=== PATIENT | female | born 1940 | race Caucasian/White ===

== ENCOUNTER 2020-11-27 19:39 | Inpatient (IN) | payer OTHER ==
[~2020-11-27] VITALS: Ht 165.1 cm; Wt 80.0 kg
[2020-11-27] MEDS ORDERED: temazepam 15mg capsule PO PRN (21:00)
[2020-11-27 21:48] LABS: BASOPHILS % (AUTO) 0.2 % (0-1); EOSINOPHILS % (AUTO) 0 % (0-6); HEMOGLOBIN 13.6 g/dl (12.0-16.0); LYMPHOCYTES % (AUTO) 45.3 % (21-51); MEAN CORPUSCULAR HEMOGLOBIN 30.8 PG (27.0-31.0); MEAN CORPUSCULAR HGB CONC 34.8 g/dL (33.0-36.5); MEAN CORPUSCULAR VOLUME 88.5 FL (78-98); MEAN PLATELET VOLUME 6.7 FL (7.4-10.4); MONOCYTES # (AUTO) 0.3 X10'3 (0-0.9); MONOCYTES % (AUTO) 14.3 % (2-12); NEUTROPHILS # (AUTO) 0.9 X10'3 (1.8-7.7); NEUTROPHILS % (AUTO) 40.2 % (42-75); PLATELET COUNT 134 X10'3 (140-440); RED BLOOD COUNT 4.41 X10'6 (4.20-5.60); RED CELL DISTRIBUTION WIDTH 14.3 % (11.5-14.5); WHITE BLOOD COUNT 2.2 X10'3 (4.5-11.0)
[2020-11-27 22:04] LABS: ALANINE AMINOTRANSFERASE 116 U/L (12-78); ALBUMIN 3.1 G/DL (3.4-5.0); ALBUMIN/GLOBULIN RATIO 0.8 (1.1-1.5); ALKALINE PHOSPHATASE 86 IU/L (46-116); ANION GAP 10 (8-16); ASPARTATE AMINO TRANSFERASE 184 U/L (10-37); BILIRUBIN,TOTAL 0.9 MG/DL (0.1-1.0); BLOOD UREA NITROGEN 19 MG/DL (7-18); BUN/CREATININE RATIO 23.5 (6.6-38.0); CALCIUM 8.5 MG/DL (8.5-10.1); CHLORIDE 92 MMOL/L (99-107); CREATININE 0.81 MG/DL (0.40-0.90); GLUCOSE 108 MG/DL (70-104); POTASSIUM 4.1 MMOL/L (3.5-5.1); SODIUM 130 MMOL/L (135-145); TOTAL CARBON DIOXIDE 27.9 MMOL/L (24-32); TOTAL PROTEIN 7.1 G/DL (6.4-8.2); eGFR 68 ML/MIN
[2020-11-27 22:07] LABS: TROPONIN I < 0.04 NG/ML (0.0-0.05)
[2020-11-27] MEDS ORDERED: iohexol 350MG/ML 100ml bottle IV ONE (22:09)
[2020-11-27] MEDS ORDERED: HYDROcodone/acetaminophen 5mg/325mg tablet PO PRN (22:35)
[2020-11-27] MEDS ORDERED: ondansetron/PF 4mg/2ml inj IV PRN (22:35)
[2020-11-27] MEDS ORDERED: ipratropium/albuterol 3ml nebule NEB PRN (22:35)
[2020-11-27] MEDS ORDERED: diphenhydrAMINE 25mg capsule PO PRN (22:35)
[2020-11-27] MEDS ORDERED: acetaminophen 650mg rectal suppository RC PRN (22:35)
[2020-11-27] MEDS ORDERED: acetaminophen 325mg tablet PO PRN ×2 (22:35)
[2020-11-27] MEDS ORDERED: mag hydrox/Alum hydrox/simeth 30ml oral suspension PO PRN (22:35)
[2020-11-27] MEDS: normal saline 1000ml 1,000 ML IV SCH (22:35)
[2020-11-27] MEDS ORDERED: magnesium hydroxide 30ml (MOM) UD suspension PO PRN (22:35)
[2020-11-27] MEDS ORDERED: diphenhydrAMINE 50 mg/ml inj IV PRN (22:35)
[2020-11-27] MEDS ORDERED: morphine 2 MG/ML inj. syringe IV PRN ×2 (22:35)
[2020-11-27] MEDS: docusate sod 100mg capsule PO SCH (22:43)
[2020-11-27] MEDS ORDERED: CASIRIVIMAB (REGN10933) 1332MG 600 MG, IMDEVIMAB (REGN10987) 1332mg 600 MG in normal sa... IV ONE (22:45)
[2020-11-27] MEDS ORDERED: dextrose 50%-water 50ml dispensing syringe IV PRN ×2 (22:45)
[2020-11-27] MEDS ORDERED: dextrose ORAL solution 15 GM/59 ML bottle PO PRN ×2 (22:45)
[2020-11-27] MEDS ORDERED: glucagon, human recombinant 1mg kit SUBCUT PRN (22:45)
[2020-11-27] MEDS ORDERED: MESSAGE TO PHARMACY PO ONE (22:45)
[2020-11-27] MEDS ORDERED: insulin Lispro (HumaLOG) vial - multi-dose SQ SCH (22:45)
[2020-11-27 23:15] LABS: PARTIAL THROMBOPLASTIN TIME 33 SECONDS (22-32)
[2020-11-27 23:17] LABS: HEMOGLOBIN A1C 6.8 % (4.5-6.2)
[2020-11-27 23:19] LABS: C-REACTIVE PROTEIN 1.12 MG/DL (0.0-0.5); CREATINE KINASE 109 U/L (26-192); LIPASE 84 U/L (73-393); MAGNESIUM 2.1 MG/DL (1.5-2.4); PHOSPHORUS 3.1 MG/DL (2.3-4.5)
[2020-11-27 23:33] LABS: TOTAL CELLS COUNTED 100
[2020-11-27 23:34] LABS: ACANTHOCYTES FEW; PLATELET ESTIMATE DECREASED; SMUDGE CELLS FEW
--- NOTE | 2020-11-27 23:37 | NUR ---
dr. winn at bedside. discussed regeneron. dr. bhandari contacting ID to get regeneron approved.
[2020-11-28] MEDS ORDERED: ALBUTEROL INHALER 1 PUFF/90 MCG INHALER IH PRN (00:15)
[2020-11-28 01:10] LABS: CLARITY,URINE CLEAR (Clear); COLOR,URINE YELLOW (Yellow); GLUCOSE, URINE NEGATIVE (Neg); KETONES,URINE 15 mg/dl (Neg); LEUKOCYTE ESTERASE ,URINE TRACE (Neg); NITRITES, URINE NEGATIVE (Neg); OCCULT BLOOD,URINE NEGATIVE (Neg); PH,URINE 5.5 (4.8-8.0); PROTEIN,URINE NEGATIVE (Neg); UROBILINOGEN,URINE 0.2 E.U/dL (0.2-1.0)
[2020-11-28 01:17] LABS: UA COLLECTION TYPE CLN CATCH MIDSTREAM
[2020-11-28 01:18] LABS: BACTERIA,URINE FEW /HPF (Neg); RBC,URINE NONE SEEN /HPF (0-2); SQUAMOUS EPITHELIAL CELL,UR FEW /LPF (FEW); WBC,URINE 0-4 /HPF (0-4)
[2020-11-28] MEDS: pantoprazole 40mg Tablet.DR PO SCH (07:05)
[2020-11-28] MEDS: enoxaparin 30mg/0.3ml syringe SQ SCH ×2 (07:05→20:54)
[2020-11-28] MEDS: dexamethasone 4mg/ml inj IV SCH ×2 (07:05→20:54)
[2020-11-28] MEDS: normal saline 1000ml 1,000 ML IV SCH ×2 (07:06→18:35)
[2020-11-28 10:15] LABS: HEMOGLOBIN 14.1 g/dl (12.0-16.0); MEAN CORPUSCULAR HEMOGLOBIN 30.9 PG (27.0-31.0); MEAN CORPUSCULAR HGB CONC 34.3 g/dL (33.0-36.5); MEAN CORPUSCULAR VOLUME 89.9 FL (78-98); MEAN PLATELET VOLUME 6.8 FL (7.4-10.4); PLATELET COUNT 145 X10'3 (140-440); RED BLOOD COUNT 4.57 X10'6 (4.20-5.60); RED CELL DISTRIBUTION WIDTH 14.4 % (11.5-14.5); WHITE BLOOD COUNT 2.5 X10'3 (4.5-11.0)
[2020-11-28] MEDS ORDERED: potassium Cl 20 mEq SR tablet PO PRN ×2 (10:35)
[2020-11-28] MEDS ORDERED: potassium Cl 40MEQ/1/2NS 520ml 520 ML IV PRN (10:35)
[2020-11-28] MEDS ORDERED: magnesium 4gm in 100ml NS 100 ML IV PRN (10:35)
[2020-11-28] MEDS ORDERED: magnesium Cl slow-release 64mg tablet PO PRN (10:35)
[2020-11-28] MEDS ORDERED: NO HOME MEDS (10:39)
[2020-11-28 10:40] LABS: ALANINE AMINOTRANSFERASE 108 U/L (12-78); ALBUMIN 3.1 G/DL (3.4-5.0); ALBUMIN/GLOBULIN RATIO 0.8 (1.1-1.5); ALKALINE PHOSPHATASE 74 IU/L (46-116); ANION GAP 9 (8-16); ASPARTATE AMINO TRANSFERASE 151 U/L (10-37); BILIRUBIN,TOTAL 0.8 MG/DL (0.1-1.0); BLOOD UREA NITROGEN 15 MG/DL (7-18); CALCIUM 8.8 MG/DL (8.5-10.1); CHLORIDE 100 MMOL/L (99-107); CHOL/HDL RATIO 3.2 (0.00-4.99); CHOLESTEROL 117 MG/DL (0-200); CREATININE 0.75 MG/DL (0.40-0.90); GLUCOSE 121 MG/DL (70-104); HDL CHOLESTEROL 37 MG/DL (35-60); LDL CHOLESTEROL 55 MG/DL (50-100); POTASSIUM 4.1 MMOL/L (3.5-5.1); SODIUM 138 MMOL/L (135-145); TOTAL CARBON DIOXIDE 29.3 MMOL/L (24-32); TOTAL PROTEIN 7.2 G/DL (6.4-8.2); TRIGLYCERIDES 138 MG/DL (20-135); eGFR 75 ML/MIN
[2020-11-28 10:43] LABS: TOTAL CELLS COUNTED 100
[2020-11-28 10:44] LABS: ACANTHOCYTES FEW; ELLIPTOCYTES FEW; PLATELET ESTIMATE DECREASED
[2020-11-28] MEDS: CefTRIAXone/D5W-Rocephin 1gm 50 ML IV SCH (12:37)
--- NOTE | 2020-11-28 14:19 | NUR ---
HAVE NOT CALLED REPORT YET I CAME TO KNOW ROOM PT THAT DR DUNLAP IS TRYING TO D/C PT HOME IF SHE GET CLEARED BY PT .PT IS INSIDE THE PT ROOM FOR EVAL.
--- NOTE | 2020-11-28 14:39 | NUR ---
PAGED CASE MGT FOR PT NEED HOME HEALTH NURSE AT TIME OF D/C.
--- NOTE | 2020-11-28 14:47 | NUR ---
PAGED BY ER THAT HOME HEALTH NEEDED FOR PATIENT. HH ORDERS SENT TO [facility].
--- NOTE | 2020-11-28 14:55 | NUR ---
CHET DECLINED PATIENT DUE TO COVID. ORDERS SENT TO [facility], AWAITING RESPONCE.
--- NOTE | 2020-11-28 14:55 | NUR ---
AGRICULTURE SPECIALIST AT BEDSIDE.PérezS Josephine
--- NOTE | 2020-11-28 17:15 | NUR ---
Report received from ED RN, Chichi
--- NOTE | 2020-11-28 18:00 | NUR ---
Pt arrived from ED
--- NOTE | 2020-11-28 18:30 | NUR ---
Problems reprioritized. Patient report given, questions answered & plan of care reviewed with MILLIE Parada.
[2020-11-28] MEDS: K and/or MAG REPLACEMENT MC SCH (19:02)
[2020-11-28] MEDS: docusate sod 100mg capsule PO SCH (20:54)
[2020-11-29 06:35] LABS: BASOPHILS % (AUTO) 0.1 % (0-1); D-DIMER 0.34 MG/L FEU (0-0.50); EOSINOPHILS % (AUTO) 0.1 % (0-6); HEMATOCRIT 42.8 % (35.0-45.0); HEMOGLOBIN 14.5 g/dl (12.0-16.0); LYMPHOCYTES # (AUTO) 1.1 X10'3 (1.1-4.8); LYMPHOCYTES % (AUTO) 37.6 % (21-51); MEAN CORPUSCULAR HEMOGLOBIN 30.5 PG (27.0-31.0); MEAN CORPUSCULAR HGB CONC 33.9 g/dL (33.0-36.5); MEAN CORPUSCULAR VOLUME 89.9 FL (78-98); MONOCYTES # (AUTO) 0.3 X10'3 (0-0.9); MONOCYTES % (AUTO) 11.2 % (2-12); NEUTROPHILS # (AUTO) 1.5 X10'3 (1.8-7.7); PLATELET COUNT 179 X10'3 (140-440); RED BLOOD COUNT 4.76 X10'6 (4.20-5.60); RED CELL DISTRIBUTION WIDTH 14.4 % (11.5-14.5); WHITE BLOOD COUNT 2.9 X10'3 (4.5-11.0)
[2020-11-29 06:41] LABS: ALANINE AMINOTRANSFERASE 80 U/L (12-78); ALBUMIN/GLOBULIN RATIO 0.7 (1.1-1.5); ALKALINE PHOSPHATASE 69 IU/L (46-116); ANION GAP 14 (8-16); ASPARTATE AMINO TRANSFERASE 101 U/L (10-37); BILIRUBIN,TOTAL 0.9 MG/DL (0.1-1.0); BLOOD UREA NITROGEN 16 MG/DL (7-18); BUN/CREATININE RATIO 21.1 (6.6-38.0); C-REACTIVE PROTEIN 0.38 MG/DL (0.0-0.5); CALCIUM 8.4 MG/DL (8.5-10.1); CHLORIDE 98 MMOL/L (99-107); CREATININE 0.76 MG/DL (0.40-0.90); GLUCOSE 168 MG/DL (70-104); LACTATE DEHYDROGENASE 315 U/L (81-234); MAGNESIUM 2.1 MG/DL (1.5-2.4); PHOSPHORUS 3.1 MG/DL (2.3-4.5); POTASSIUM 4.2 MMOL/L (3.5-5.1); SODIUM 135 MMOL/L (135-145); TOTAL CARBON DIOXIDE 23.5 MMOL/L (24-32); TOTAL PROTEIN 7.2 G/DL (6.4-8.2); eGFR 73 ML/MIN
[2020-11-29 07:00] VITALS: BP 133/62
[2020-11-29] MEDS: K and/or MAG REPLACEMENT MC SCH (08:00)
[2020-11-29] MEDS ORDERED: dexamethasone 4mg/ml inj IV SCH (08:00)
[2020-11-29 08:06] LABS: ELLIPTOCYTES FEW; PLATELET ESTIMATE NORMAL; TOTAL CELLS COUNTED 100
[2020-11-29 08:07] LABS: ACANTHOCYTES 1+; BURR CELLS 1+
[2020-11-29] MEDS: docusate sod 100mg capsule PO SCH (09:15)
[2020-11-29] MEDS: pantoprazole 40mg Tablet.DR PO SCH (09:15)
[2020-11-29] MEDS: enoxaparin 30mg/0.3ml syringe SQ SCH (09:16)
[2020-11-29] MEDS: CefTRIAXone/D5W-Rocephin 1gm 50 ML IV SCH (09:17)
[2020-11-29 11:00] VITALS: BP 155/68
[2020-11-29] MEDS ORDERED: METF-950 PO (11:55)
[2020-11-29] MEDS ORDERED: DEXA6TAB PO (11:55)
[2020-11-29] MEDS ORDERED: ALBU6.7H9 IH (11:55)
[2020-11-29] MEDS ORDERED: ASPI-611 PO (11:55)
[2020-11-29] MEDS ORDERED: LISI2.5T14 PO (11:55)
[2020-11-29] MEDS ORDERED: PANT40TA54 PO (11:55)
[2020-11-29] MEDS ORDERED: BENZ-16 PO (11:55)
[2020-11-29 15:00] VITALS: BP 154/68
[2020-11-29] MEDS ORDERED: CEFD300C3 PO (15:34)
--- NOTE | 2020-11-29 16:45 | NUR ---
PHONED PATIENT'S DAUGHTER REGARDING DISCHARGE OF HER MOTHER , DISCHARGE INSTRUCTIONS AND DISCHARGE MEDICATIONS. PHONED DR. DUNLAP REGARDING PATIENT'S URINE CULTURE RESULTS , AND HOME B/P MEDICATIONS. ORDERS RECEIVED AND NOTED. PHONED [facility], AND NOTIFIED PHARMACY FOR CANCELATION OF LISINOPRIL PER DR. DUNLAP ORDERS.PATIENT DC'D HOME WITH ALL BELONGINGS AND DISCHARGE INSTRUCTIONS. Addendum: 11/29/20 at 1728 by Laura Armstrong RN Amended: Links added.
== END 2020-11-29 16:35 | disposition home health service (06) | DRG 177 ==
LOC: ER 19:40 → ED HOLD 22:40 → EDBD 22:40 → COVID IP 11-28 18:09
PROVIDERS: ADMIT Family Medicine; ATTEND Family Medicine
PROC: B32T1ZZ Computerized Tomography (CT Scan) of Left Pulmonary Artery using Low Osmolar Contrast (ICD-10-PCS; principal; 2020-11-27)
PROC: B3201ZZ Computerized Tomography (CT Scan) of Thoracic Aorta using Low Osmolar Contrast (ICD-10-PCS; 2020-11-27)
PROC: B32S1ZZ Computerized Tomography (CT Scan) of Right Pulmonary Artery using Low Osmolar Contrast (ICD-10-PCS; 2020-11-27)
DX: U07.1 COVID-19 (principal); J12.82 Pneumonia due to coronavirus disease 2019; E87.1 Hypo-osmolality and hyponatremia; N39.0 Urinary tract infection, site not specified; D69.6 Thrombocytopenia, unspecified; D72.819 Decreased white blood cell count, unspecified; E11.65 Type 2 diabetes mellitus with hyperglycemia; E86.0 Dehydration; R06.03 Acute respiratory distress; I10 Essential (primary) hypertension; R09.02 Hypoxemia; Z87.891 Personal history of nicotine dependence
CPT/HCPCS: 36415; 71045; 71275; 80053; 80061; 81001; 82550; 82948; 83036; 83605; 83615; 83690; 83735; 83880; 84100; 84443; 84484; 85007; 85025; 85379; 85610; 85651; 85730; 86140; 87040; 87077; 87088; 87186; 93005; 93308; 94760; 97110; 97112; 97116; 97161; 97530; 97535; 99285; G0378; J0696; J1100; J1650; J1815; J7030; Q9967

== ENCOUNTER 2021-04-30 08:23 | Day surgery (SDC) | payer MEDICARE ==
[~2021-04-30] VITALS: Ht 165.1 cm; Wt 70.3 kg
[2021-04-30] VITALS (8 sets, daily range): BP systolic 124–147; BP diastolic 47–69
[~2021-04-30 08:23] MED LIST: ALBU6.7H9 IH; BENZ-16 PO; DEXA6TAB PO; LISI2.5T14 PO; PANT40TA54 PO
[2021-04-30] MEDS ORDERED: diphenhydrAMINE 25mg capsule PO PRN (08:55)
[2021-04-30] MEDS ORDERED: normal saline 1,000 ML IV SCH (08:55)
[2021-04-30] MEDS ORDERED: VERA300C6 PO (09:27)
[2021-04-30] MEDS ORDERED: ATOR40TA72 PO (09:27)
[2021-04-30] MEDS ORDERED: MEMA10TA56 PO (09:27)
[2021-04-30] MEDS ORDERED: METF-1203 PO (09:27)
[2021-04-30] MEDS ORDERED: ASPI81TA52 PO (09:27)
[2021-04-30] MEDS ORDERED: ASCO-10 PO (09:27)
[2021-04-30] MEDS ORDERED: CHOL200074 PO (09:27)
[2021-04-30 09:46] LABS: BASOPHILS % (AUTO) 0.7 % (0-1); EOSINOPHILS # (AUTO) 0.1 X10'3 (0-0.9); EOSINOPHILS % (AUTO) 4.2 % (0-6); HEMATOCRIT 37.3 % (35.0-45.0); HEMOGLOBIN 12.4 g/dl (12.0-16.0); LYMPHOCYTES % (AUTO) 32.4 % (21-51); MEAN CORPUSCULAR HEMOGLOBIN 31.5 PG (27.0-31.0); MEAN CORPUSCULAR HGB CONC 33.1 g/dL (33.0-36.5); MEAN CORPUSCULAR VOLUME 95.1 FL (78-98); MEAN PLATELET VOLUME 7.1 FL (7.4-10.4); MONOCYTES # (AUTO) 0.3 X10'3 (0-0.9); MONOCYTES % (AUTO) 8.6 % (2-12); NEUTROPHILS # (AUTO) 1.6 X10'3 (1.8-7.7); NEUTROPHILS % (AUTO) 54.1 % (42-75); PLATELET COUNT 164 X10'3 (140-440); RED BLOOD COUNT 3.92 X10'6 (4.20-5.60); RED CELL DISTRIBUTION WIDTH 13.3 % (11.5-14.5)
[2021-04-30 10:10] LABS: ALBUMIN 3.5 G/DL (3.4-5.0); ANION GAP 10 (8-16); BLOOD UREA NITROGEN 18 MG/DL (7-18); CHLORIDE 110 MMOL/L (99-107); CREATININE 0.72 MG/DL (0.40-0.90); GLUCOSE 114 MG/DL (70-104); MAGNESIUM 1.9 MG/DL (1.5-2.4); POTASSIUM 3.7 MMOL/L (3.5-5.1); SODIUM 146 MMOL/L (135-145); TOTAL CARBON DIOXIDE 25.6 MMOL/L (24-32); eGFR 78 ML/MIN
[2021-04-30 10:16] LABS: CALCIUM 8.4 MG/DL (8.5-10.1)
[2021-04-30] MEDS ORDERED: midazolam 1 mg/ML 2ml injection ONE (11:41)
[2021-04-30] MEDS ORDERED: iohexol 350 MG/ML 50ML vial IV ONE (11:41)
[2021-04-30] MEDS ORDERED: heparin 1,000unit/ml 10ml vial 10 ML ONE (11:41)
[2021-04-30] MEDS ORDERED: iohexol 350MG/ML 100ml bottle IV ONE (11:41)
[2021-04-30] MEDS ORDERED: LIDOcaine 1% (10mg/ml)w/preservative injection 20ml MDV ONE (11:41)
[2021-04-30 11:43] LABS: PLATELET ESTIMATE NORMAL; TOTAL CELLS COUNTED 100
[2021-04-30] MEDS ORDERED: nitroGLYCERIN-Tridil 50MG/D5W 250 ML IV ONE (11:43)
[2021-04-30] MEDS ORDERED: verapamil 2.5 mg/ml inj IV ONE (11:43)
[2021-04-30] MEDS ORDERED: fentaNYL/PF 50MCG/1 ML 2ML syringe ONE (11:43)
[2021-04-30 11:56] LABS: ELLIPTOCYTES FEW
[2021-04-30 11:57] LABS: ACANTHOCYTES 1+; ANISOCYTOSIS FEW; BURR CELLS 1+
[2021-04-30] MEDS ORDERED: ondansetron/PF 4mg/2ml inj IV PRN (14:40)
[2021-04-30] MEDS ORDERED: HYDROcodone/acetaminophen 5mg/325mg tablet PO PRN (14:40)
[2021-04-30] MEDS ORDERED: HYDROcodone/acetaminophen 10/325mg tab PO PRN (14:40)
[2021-04-30] MEDS ORDERED: proCHLORperazine 10 MG/2 ml inj IV PRN (14:40)
--- NOTE | 2021-04-30 17:15 | NUR ---
Removed vasc band and cleaned right radial site. No bleeding or hematoma present. Dressed with 2x2's and tegaderm; Placed 2x2's and coban over dressing.
== END 2021-04-30 17:45 | disposition home or self-care (01) ==
LOC: SSTAY O 08:23
PROVIDERS: ATTEND Internal Medicine Cardiovascular Disease
DX: R94.39 Abnormal result of other cardiovascular function study (principal); I10 Essential (primary) hypertension; E78.00 Pure hypercholesterolemia, unspecified; E11.40 Type 2 diabetes mellitus with diabetic neuropathy, unspecified; Z79.899 Other long term (current) drug therapy; Z79.84 Long term (current) use of oral hypoglycemic drugs; Z98.890 Other specified postprocedural states; Z88.5 Allergy status to narcotic agent; Z72.89 Other problems related to lifestyle; Z82.49 Family history of ischemic heart disease and other diseases of the circulatory system
CPT/HCPCS: 80048; 82948; 83735; 85025; 85610; 93005; 93458; 99152; 99153; C1769; C1894; J1644; J2250; J3010; J3490; J7030; Q0163; Q9967; 85007; A4620; A6258

== ENCOUNTER 2024-02-05 15:21 | Outpatient (CLI) | payer MEDICARE ==
[~2024-02-05 15:21] MED LIST changes: -ALBU6.7H9 IH; +ASCO-10 PO; +ASPI81TA52 PO; +ATOR40TA72 PO; -BENZ-16 PO; +CHOL200074 PO; -DEXA6TAB PO; +ESCI20TA39 PO; +LAMO25TA5 PO; -LISI2.5T14 PO; +MEMA10TA22 PO; +METF-1203 PO; -PANT40TA54 PO; +VERA300C6 PO
== END 2024-02-05 23:59 | disposition home or self-care (01) ==
LOC: MRI02 15:21
PROVIDERS: ATTEND Family Medicine
DX: I67.82 Cerebral ischemia (principal); R41.89 Other symptoms and signs involving cognitive functions and awareness
CPT/HCPCS: 70551